=== PATIENT | male | born 1945 | race Caucasian/White ===

== ENCOUNTER 2016-05-25 11:46 | Emergency (ER) | payer BC, OTHER ==
[~2016-05-25] VITALS: Ht 162.6 cm; Wt 70.1 kg
[~2016-05-25 11:46] MED LIST: ACET-1311; ASPEC325
[2016-05-25 11:49] VITALS: TEMP 36.4; Ht 162.6 cm; Wt 70.1 kg
[2016-05-25] MEDS ORDERED: HYDR-4717 PO (12:33)
[2016-05-25] MEDS ORDERED: LOSA50TA6 PO (12:33)
[2016-05-25] MEDS ORDERED: LABETALOL HCL IV 5 MG/ML 20ML IV STA (12:35)
[2016-05-25] MEDS ORDERED: CLONIDINE HCL 0.1 MG TAB PO ONE (12:45)
--- NOTE | 2016-05-25 12:50 | EMERGENCY ROOM VISIT NOTE ---
History Report prepared by Shahriar: Jaime Martines Under the Supervision of: Dr. Lane Salmon M.D. First contact with patient: 12:25 Chief Complaint: HYPERTENSION Stated Complaint: BLOOD PRESSURE 236/116 History of Present Illness The patient is a 71 year old male who presents to the Emergency Room with complaints of persistent hypertension for the past 4 days. The patient presented to his PCP 4 days ago and his blood pressure was high. They decided to increase his blood pressure medications. The patient has been taking his blood pressure medications as recommended. He notes that two days ago he started to not feel well. Today they took his blood pressure at home and it was 236/116. However, he took his medications on the way to the ED and his blood pressure has gone down since that time. The patient also complains of a headache. Source of History: patient Onset: 4 days Position: other (global) Timing: other (persistent) Associated Symptoms: + headache Review of Systems See HPI for pertinent positives & negatives. A total of 10 systems reviewed and were otherwise negative. Past Medical & Surgical Medical Problems: (1) Hypertension (2) Kidney disease (3) Testicular cyst Family History FH: diabetes mellitus FH: heart disease FH: hypertension Social History Smoking Status: Current Every Day Smoker Alcohol Use: none Occupation Status: retired Current/Historical Medications Scheduled Hydralazine Hcl (Apresoline), 1 TAB PO TID Losartan Potassium (Cozaar), 1 TAB PO DAILY Miscellaneous Medications Aspirin Enteric Coated (Ecotrin Or Generic *) Allergies Coded Allergies: No Known Allergies (Verified Allergy, Unknown, 11/02/05) Physical Exam Vital Signs Date Time Temp Pulse Resp B/P Pulse Ox O2 Delivery O2 Flow Rate FiO2 05/25/16 13:33 67 18 155/82 05/25/16 13:07 72 16 190/112 05/25/16 12:42 80 204/111 05/25/16 12:05 84 05/25/16 12:03 226/109 05/25/16 11:49 36.4 97 18 241/122 95 Room Air Physical Exam CONSTITUTIONAL: No acute distress. HEENT: No icterus, moist mucous membranes NECK: No meningismus, trachea is midline. CARDIOVASCULAR: Regular rate, normal perfusion RESPIRATORY: Unlabored breathing. Clear to auscultation. GASTROINTESTINAL: Non-tender GENITOURINARY: No flank tenderness MUSCULOSKELETAL: Full range of motion NEUROLOGIC: No acute gross focal deficits. PSYCHIATRIC: Normal affect SKIN: Normal for ethnicity. Medical Decision & Procedures Laboratory Results 05/25/16 12:00 Red Blood Count 5.21, Mean Corpuscular Volume 89.8, Mean Corpuscular Hemoglobin 32.4, Mean Corpuscular Hemoglobin Concent 36.1, Mean Platelet Volume 11.6, Neutrophils (%) (Auto) 70.6, Lymphocytes (%) (Auto) 17.8, Monocytes (%) (Auto) 9.5, Eosinophils (%) (Auto) 1.4, Basophils (%) (Auto) 0.4, Neutrophils # (Auto) 5.00, Lymphocytes # (Auto) 1.26, Monocytes # (Auto) 0.67, Eosinophils # (Auto) 0.10, Basophils # (Auto) 0.03 05/25/16 12:00 Test 05/25/16 12:00 White Blood Count 7.08 K/uL (4.8-10.8) Red Blood Count 5.21 M/uL (4.7-6.1) Hemoglobin 16.9 g/dL (14.0-18.0) Hematocrit 46.8 % (42-52) Mean Corpuscular Volume 89.8 fL (80-100) Mean Corpuscular Hemoglobin 32.4 pg (25-34) Mean Corpuscular Hemoglobin Concent 36.1 g/dl (32-36) Platelet Count 199 K/uL (130-400) Mean Platelet Volume 11.6 fL (7.4-10.4) Neutrophils (%) (Auto) 70.6 % Lymphocytes (%) (Auto) 17.8 % Monocytes (%) (Auto) 9.5 % Eosinophils (%) (Auto) 1.4 % Basophils (%) (Auto) 0.4 % Neutrophils # (Auto) 5.00 K/uL (1.4-6.5) Lymphocytes # (Auto) 1.26 K/uL (1.2-3.4) Monocytes # (Auto) 0.67 K/uL (0.11-0.59) Eosinophils # (Auto) 0.10 K/uL (0-0.5) Basophils # (Auto) 0.03 K/uL (0-0.2) RDW Standard Deviation 46.7 fL (36.4-46.3) RDW Coefficient of Variation 14.0 % (11.5-14.5) Immature Granulocyte % (Auto) 0.3 % Immature Granulocyte # (Auto) 0.02 K/uL (0.00-0.02) Anion Gap 11.0 mmol/L (3-11) Est Creatinine Clear Calc Drug Dose 32.9 ml/min Estimated GFR () 45.7 Estimated GFR (Non- 39.4 BUN/Creatinine Ratio 6.0 (10-20) Calcium Level 9.6 mg/dl (8.5-10.1) Labs reviewed by ED physician. Medications Administered Medications (Trade) Dose Ordered Sig/Melissa Route Start Time Stop Time Status Last Admin Dose Admin Labetalol HCl (Normodyne IV) 10 mg NOW STAT IV 05/25/16 12:35 05/25/16 12:36 DC 05/25/16 12:41 10 MG Clonidine HCl (Catapres Tab) 0.1 mg NOW ONCE PO 05/25/16 12:45 05/25/16 12:46 DC 05/25/16 12:42 0.1 MG ED Course 1227: Past medical records reviewed. The patient was evaluated in room B10. A complete history and physical examination was performed. 1235: Ordered Labetalol HCl 10 mg iV. 1245: Ordered Clonidine HCl 0.1 mg PO. 1408: At this time, I discussed the patient's case with Dr. Wilson - [facility] and he agreed with the treatment plan. He plans to follow up with the patient later this week. 1410: At this time, I discussed the patient's case with the case worker and she will go talk to the patient about in-home care to ensure he is taking his medications as recommended. 1420: Upon reexamination the patient is resting comfortably. I discussed results and treatment plan with the patient. He verbalizes agreement and understanding. The patient is ready for discharge. Medical Decision Differential diagnoses include hypertension. 71-year-old presents into the emergency department with his sister for evaluation of hypertension. He is noted to be hearing-impaired and in the obtaining of the history likely has cognitive or memory impairment as well as a contributing factor to his underlying noncompliance. He was given clonidine 0.1 g labetalol 10 mg IV with normalization of his blood pressure in the emergency room. However he was noted to go from a systolic blood pressure of roughly 220 to 130 in a very short period of time. Because of my concern of the lability of patient's blood pressure here in the emergency room in the context of a long-standing history of hypertension and noncompliance as well as the possibility of therapeutic misadventure outweighing any potential therapeutic benefit with intervention in emergency room I discussed case with Dr. Anderson: we agree. Patient has follow-up on . Case management advised to facilitate outpatient care to try and avoid an undesirable outcome. Consults Time Called: [phone] Consulting Physician: Dr. Wilson - Internal Medicine [facility] Returned Call: [phone] At this time, I discussed the patient's case with Dr. Wilson and he agreed with the treatment plan. He plans to follow up with the patient later this week. Impression Primary Impression: Hypertension Scribe Attestation The scribe's documentation has been prepared under my direction and personally reviewed by me in its entirety. I confirm that the note above accurately reflects all work, treatment, procedures, and medical decision making performed by me. Departure Information Dispostion Home / Self-Care Referrals Prashant Wilson D.O. (PCP) Forms HOME CARE DOCUMENTATION FORM, IMPORTANT VISIT INFORMATION, WORK / SCHOOL INSTRUCTIONS Patient Instructions My [facility]
[2016-05-25 12:57] LABS: BASO % 0.4 %; BASO ABS # 0.03 K/uL (0-0.2); COMPLETE YES; EOS % 1.4 %; HEMATOCRIT 46.8 % (42-52); IG% 0.3 %; LYMPH % 17.8 %; LYMPH ABS # 1.26 K/uL (1.2-3.4); MEAN CELL VOLUME 89.8 fL (80-100); MEAN CORPUSCULAR HEMOGLOBIN 32.4 pg (25-34); MEAN CORPUSCULAR HGB CONC 36.1 g/dl (32-36); MEAN PLATELET VOLUME 11.6 fL (7.4-10.4); MONO % 9.5 %; NEUT % 70.6 %; PLATELET COUNT 199 K/uL (130-400); RED BLOOD COUNT 5.21 M/uL (4.7-6.1); WHITE BLOOD COUNT 7.08 K/uL (4.8-10.8)
[2016-05-25 12:58] LABS: CALCIUM 9.6 mg/dl (8.5-10.1); CREATININE 1.7 mg/dl (0.60-1.40); POTASSIUM 4.3 mmol/L (3.5-5.1)
[2016-05-25 15:01] VITALS: BP 129/63; PULSE 80; O2SAT 94
== END 2016-05-25 15:02 | disposition home or self-care (01) ==
LOC: C.EDB 11:48
DX: I10 Essential (primary) hypertension (principal); Z83.3 Family history of diabetes mellitus; Z82.49 Family history of ischemic heart disease and other diseases of the circulatory system; F17.210 Nicotine dependence, cigarettes, uncomplicated; Z79.899 Other long term (current) drug therapy; Z91.14 Patient's other noncompliance with medication regimen